=== PATIENT | female | born 1945 | race Caucasian/White ===

== ENCOUNTER 2018-02-26 18:30 | Emergency (ER) | payer BC, MEDICARE ==
[2018-02-26] MEDS ORDERED: predniSONE TAB* 20 MG PO ONE (18:37)
[2018-02-26] MEDS ORDERED: Albuterol 2.5 MG/3 ML NEB.SOL* (0.083%) ONE (18:38)
[2018-02-26] MEDS ORDERED: Ipratropium 0.5MG/2.5ML NEB* 0.5 MG/2.5 ML NEB.SOLN ONE (18:38)
[2018-02-26] MEDS ORDERED: Ipratropium 0.5MG/2.5ML NEB* 0.5 MG/2.5 ML NEB.SOLN INH ONE (18:39)
[2018-02-26] MEDS ORDERED: Albuterol 2.5 MG/3 ML NEB.SOL* (0.083%) INH ONE (18:39)
[2018-02-26] MEDS ORDERED: predniSONE TAB* 20 MG ONE (18:41)
[2018-02-26] MEDS ORDERED: predniSONE TAB* 10 MG ONE (18:42)
--- NOTE | 2018-02-26 18:46 | UC ---
Respiratory Complaint HPI - HPI Summary HPI Summary: 2.5 day hx cough, congestion and green sputum. states hard to raise anything. to sob to get inhaler medication in. states has a hx of copd. also notes gets sob when walking only a few steps with this. denies fever. has never been intubated or admitted to the hospital for this. denies cardiac hx and chest pain but notes chest feels heavy. 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 Onset/Duration: Gradual Onset Timing: Constant Aggravating Factors: Exertion Alleviating Factors: Nothing Associated Signs And Symptoms: Positive: Dyspnea - Allergies/Home Medications Home Medications: Home Medications Albuterol HFA INHALER* [Ventolin HFA Inhaler*] 2 puff INH Q4H PRN 02/26/18 [ History Confirmed 02/26/18] Aspirin 81 mg CHEW TAB* [Aspirin Low Dose TAB*] 81 mg PO DAILY 02/26/18 [ History Confirmed 02/26/18] Atorvastatin* [Lipitor*] 10 mg PO DAILY 02/26/18 [History Confirmed 02/26/18] Calcium Carb/Vitamin D3/Vit K1 [Calcium + D] 1 chw PO 02/26/18 [History] Omeprazole CAP* [Prilosec CAP* 20 MG] 20 mg PO DAILY 02/26/18 [History Confirmed 02/26/18] Potassium 1 tab PO DAILY 02/26/18 [History Confirmed 02/26/18] Tiotropium Brom/Olodaterol(NF) [Stiolto Respimat Inh [place] (60 puff)(NF)] 2 puff IN DAILY 02/26/18 [History Confirmed 02/26/18] busPIRone TAB* [Buspar TAB*] DAILY 02/26/18 [History Confirmed 02/26/18] PMH/Surg Hx/FS Hx/Imm Hx - Additional Past Medical History Additional PMH: Eulogio's Esophagus Endocrine History: Dyslipidemia Respiratory History: COPD Psychological History: Anxiety - Surgical History Surgical History: None - Family History Known Family History: Positive: None - Social History Occupation: Retired Lives: With Family Smoking Status (MU): Former Smoker - Immunization History Vaccination Up to Date: Yes Review of Systems Constitutional: Negative Skin: Negative Eyes: Negative ENT: Negative Respiratory: Shortness Of Breath, Cough Cardiovascular: Negative Gastrointestinal: Negative Genitourinary: Negative Motor: Negative Neurovascular: Negative Musculoskeletal: Negative Neurological: Negative Psychological: Negative Is Patient Immunocompromised?: No All Other Systems Reviewed And Are Negative: Yes Physical Exam Triage Information Reviewed: Yes Appearance: Well-Nourished Vital Signs Reviewed: Yes Eyes: Positive: Conjunctiva Clear ENT: Positive: Pharynx normal, TMs normal. Negative: Nasal congestion, Nasal drainage Neck: Positive: Supple, Nontender, No Lymphadenopathy, Other: - no jvd Respiratory: Positive: Chest non-tender, Lungs clear, Decreased breath sounds, Accessory muscle use - mild, Other: - cough is congested. RA sat=78% but bc to 98-99% with O2 nasal cannnula. Cardiovascular: Positive: No Murmur, Pulses Normal, Tachycardia Abdomen Description: Positive: Nontender, No Organomegaly, Soft Bowel Sounds: Positive: Present Musculoskeletal: Positive: ROM Intact, No Edema Neurological: Positive: Alert Psychological: Positive: Age Appropriate Behavior Skin Exam: Normal UC Diagnostic Evaluation - EKG Cardiac Rate: Tachycardia Cardiac Rhythm: Sinus: Normal Ectopy: None ST Segment: Normal Re-Evaluation - Re-Evaluation Second Eval Re-Evaluation Time: 18:57 Change: Improved - a little less labored. cough more loose. pt notes a little easier to breathe. slight improvement in aeration with faint expiratory wheezes. 19:25 Breathing still labored. LT=865. Sat dropped to 91% right after O2 turned off. also notes "chest now feels tight". did take asa today. Respiratory Course/Dx - Course Course Of Treatment: ekg shows pulmonary strain. still sob, tachycardic and hypoxic post po prednisone and duoneb. also, pt c/o chest now tight. thus ER transfer required. pt and are both refusing ems despite risk of mva, delays in care , worsening, disability and . will drive pt. both are A&Ox3 thus i must respect their refisal of ems. pt taken to car in WC. they are to get a WC and assistance upon arrival to ER as well. [facility] ER called. report given to Dr Berumen. advised of copd flare, hypoxemia, chest tightness, strain on ekg and refusing ems. - Differential Dx/Diagnosis Provider Diagnoses: Exacerbation COPD, Hypoxemia, chest tightness Discharge - Sign-Out/Discharge Documenting (check all that apply): Discharge/Admit/Transfer - Discharge Plan Condition: Stable Disposition: TRANS HIGHER LVL OF CARE FAC Referrals: Allie Luque MD [Primary Care Provider] - Additional Instructions: LEAVE HERE AND GO DIRECTLY TO THE [facility] ER. HAVE YOUR GET STAFF AND A WHEELCHAIR TO GET YOU INSIDE. - Billing Disposition and Condition Condition: STABLE Disposition: EMTALA
[2018-02-26 18:47] VITALS: BP 192/84
== END 2018-02-26 19:27 | disposition short-term general hospital (02) ==
LOC: UCCORT 18:30
DX: J44.1 Chronic obstructive pulmonary disease with (acute) exacerbation (principal); R09.02 Hypoxemia; R07.89 Other chest pain; R00.0 Tachycardia, unspecified; K22.70 Barrett's esophagus without dysplasia; E78.5 Hyperlipidemia, unspecified; F41.9 Anxiety disorder, unspecified; Z87.891 Personal history of nicotine dependence
CPT/HCPCS: 93005; 99203; G0463; J7512

== ENCOUNTER 2023-02-14 05:38 | Inpatient (IN) ==
[~2023-02-14 05:38] MED LIST: Buffered Lidocaine 1% SYRIN 1 ml INTRADERM ONE; HYDROcodone/ACETAMIN 5/325 mg TAB PO PRN; Lactated Ringers 1000 ml BAG 1,000 ML IV SCH; Metoclopramide 5 MG/ML VIAL (10 mg) IV PRN; Naloxone 0.4 mg VIAL 0.4 mg/ml 1 ml VIAL IV PRN; Ondansetron 4 mg VIAL 2 MG/ML 2 ml VIAL IV PRN
[2023-02-14] MEDS ORDERED: Famotidine IV 10 MG/ML 2 ml VIAL (20 mg) IV ONE (06:00)
[2023-02-14] MEDS ORDERED: ceFAZolin 2 GM PREMIX 2 GM/50 ML BAG ONE (06:03)
[2023-02-14] MEDS ORDERED: Famotidine IV 10 MG/ML 2 ml VIAL (20 mg) ONE (06:03)
[2023-02-14] MEDS ORDERED: Heparin 5000 UNITS/ML 1 mL VIAL ONE (06:03)
[2023-02-14] MEDS ORDERED: Buffered Lidocaine 1% SYRIN 1 ml ONE (06:03)
[2023-02-14 06:31] LABS: Rapid COVID-19 Molecular Undetected (Undetected)
[2023-02-14] MEDS ORDERED: Midazolam 2 mg/2 ml VIAL 1 mg/ml 2 ml VIAL (2 mg) ONE (07:13)
[2023-02-14] MEDS ORDERED: Propofol 10 MG/ML 20 ML BTL ONE (07:13)
[2023-02-14] MEDS ORDERED: Lidocaine 2% PF 5 ML VIAL ONE (07:13)
[2023-02-14] MEDS ORDERED: fentaNYL 100 mcg/2 ml 50 MCG/ML VIAL ONE ×2 (07:14→11:04)
[2023-02-14] MEDS ORDERED: Bupivacaine 0.5% SDV PF 30ML VIAL ONE (07:20)
[2023-02-14] MEDS ORDERED: Phenylephrine IV 10 MG/ML 1 ml VIAL ONE (08:14)
[2023-02-14] MEDS ORDERED: Dexamethasone IV 4 MG/ML VIAL 1 ml VIAL ONE ×2 (08:14)
[2023-02-14] MEDS ORDERED: Ondansetron 4 mg VIAL 2 MG/ML 2 ml VIAL ONE ×2 (08:14)
[2023-02-14] MEDS ORDERED: Morphine 2 MG/ML SYRINGE IV PRN (10:45)
[2023-02-14] MEDS: fentaNYL 100 mcg/2 ml 50 MCG/ML VIAL IV PRN ×4 (11:05→11:31)
[2023-02-14] MEDS ORDERED: Benzocaine (plain) Lozenge 15 MG PO PRN (12:06)
[2023-02-14] MEDS: Heparin 5000 UNITS/ML 1 mL VIAL SUBCUT SCH ×3 (13:14→20:53)
[2023-02-14] MEDS: HYDROcodone/ACETAMIN 5/325 mg TAB PO PRN ×2 (13:14→20:53)
[2023-02-14] MEDS ORDERED: Albuterol HFA INHALER 8 gm MDI INH PRN (15:38)
[2023-02-14] MEDS: ceFAZolin 2 GM/50 ML BAG IV SCH (15:53)
[2023-02-14] MEDS ORDERED: ceFAZolin 2 GM in NS PREMIX 2 GM/100 ML BAG IVPB SCH (16:00)
[2023-02-15] MEDS: ceFAZolin 2 GM/50 ML BAG IV SCH ×2 (00:42→08:33)
[2023-02-15] MEDS: Heparin 5000 UNITS/ML 1 mL VIAL SUBCUT SCH (05:55)
[2023-02-15] MEDS ORDERED: FLUTICAS/UMECLI/VILANT 200-62.5-25 MDI (NF) INH SCH (09:00)
[2023-02-15 11:33] VITALS: BP 112/62
== END 2023-02-15 15:06 | disposition home or self-care (01) | DRG 578 ==
LOC: AA 05:38 → SSU 10:35
PROVIDERS: ADMIT Student in an Organized Health Care Education/Training Program; ATTEND Student in an Organized Health Care Education/Training Program